=== PATIENT | female | born 1935 | race Caucasian/White ===

== ENCOUNTER 2017-09-21 11:30 | Inpatient (IN) | payer OTHER, BC ==
[2017-09-18 13:44] VITALS: BMI 26.5
[2017-09-21] MEDS ORDERED: ROCURONIUM BROMIDE 50 MG/5 ML VIAL ONE (13:50)
[2017-09-21] MEDS ORDERED: MIDAZOLAM HCL 2 MG/2 ML SINGLE DOSE VIAL ONE ×2 (13:50→14:26)
[2017-09-21] MEDS ORDERED: LIDOCAINE 1%/EPI 1:100000 (20 ML MULTI DOSE VIAL) ONE (14:25)
[2017-09-21] MEDS ORDERED: THROMBIN (BOVINE) 5,000 UNIT VIAL TP ONE (14:25)
[2017-09-21] MEDS ORDERED: GELATIN, ABSORBABLE 100 EACH SPONGE TP ONE (14:25)
--- NOTE | 2017-09-21 14:32 | HP ---
History & Physical Update - History History: No Change - Physical Physical: No Change - Assessment Assessment: No Change - Plan Plan: No Change
[2017-09-21] MEDS ORDERED: oxyCODONE HCL 5 MG TABLET PO PRN ×2 (15:26→17:56)
[2017-09-21] MEDS ORDERED: ONDANSETRON 4 MG/2 ML VIAL IVPUSH PRN ×2 (15:26→17:56)
[2017-09-21] MEDS ORDERED: LACTATED RINGERS SOLUTION 1,000 ML IV SCH (15:30)
[2017-09-21] MEDS ORDERED: LIDOCAINE 1%/EPI 1:100000 (20 ML MULTI DOSE VIAL) INF ONE (15:40)
[2017-09-21] MEDS ORDERED: ceFAZolin SODIUM 1 GM VIAL ONE (15:47)
[2017-09-21] MEDS ORDERED: DEXAMETHASONE SOD PHOSPHATE 4 MG/1 ML VIAL ONE (15:50)
[2017-09-21] MEDS ORDERED: ONDANSETRON 4 MG/2 ML VIAL ONE (17:57)
[2017-09-21] MEDS ORDERED: diazePAM 2 MG TABLET PO ONE (18:09)
--- NOTE | 2017-09-21 18:20 | OP ---
Operative Note - Note: Operative Date: 09/21/17 Pre-Operative Diagnosis: spinal stenosis Operation: anterior cervcial fusion, decompression, instrumentation of C5-C6 and C6-C7 with allograft and neuromonitoring Surgeon: Dat Edwards General Production Manager: Maggie Harvey Anesthesiologist/WHIP SAWYER: Anila Garber Anesthesia: General Estimated Blood Loss (mls): 30 Fluid Volume Replaced (mls): 1,300 Operative Report Dictated: Yes
--- NOTE | 2017-09-21 18:21 | SURG ---
Surgery Manager Learning Note Manager Learning: Maggie Harvey PA-C Date of Service: 09/21/17 Diagnosis: spinal stenosis Procedure: anterior cervicla fusion, decompression, instrumentation of C5-C6 and C6-C7 with allograft and neuromonitoring I was present for the entirety of the operative procedure. For further detail, please refer to operative report. Visit type - Case Type Case Type: Scheduled Admission - Emergency Emergency Visit: No - New patient This patient is new to me today: Yes Date on this admission: 09/21/17
[2017-09-21] MEDS ORDERED: SODIUM CHLORIDE 1,000 ML IV SCH (18:30)
[2017-09-21] MEDS ORDERED: diazePAM 2 MG TABLET ONE (19:03)
[2017-09-21] MEDS ORDERED: ACETAMINOPHEN 325 MG TABLET (FP) ONE (19:03)
[2017-09-21] MEDS ORDERED: traMADol HCL 50 MG TABLET ONE (19:04)
[2017-09-21] MEDS: diazePAM 2 MG TABLET PO PRN (19:10)
[2017-09-21] MEDS: ACETAMINOPHEN 325 MG TABLET (FP) PO SCH ×2 (19:10→21:33)
[2017-09-21] MEDS: traMADol HCL 50 MG TABLET PO SCH ×2 (19:10→21:33)
[2017-09-21] MEDS: CEFAZOLIN 1 GM/D5W 1 GM/50 ML BAG IVPB SCH (21:35)
[2017-09-21] MEDS: DEXAMETHASONE SOD PHOSPHATE 4 MG/1 ML VIAL IVPUSH SCH ×2 (21:36)
[2017-09-22] MEDS: ACETAMINOPHEN 325 MG TABLET (FP) PO SCH ×3 (00:43→11:53)
[2017-09-22] MEDS: traMADol HCL 50 MG TABLET PO SCH ×4 (00:45→14:43)
[2017-09-22] MEDS: CEFAZOLIN 1 GM/D5W 1 GM/50 ML BAG IVPB SCH (02:39)
[2017-09-22] MEDS: DEXAMETHASONE SOD PHOSPHATE 4 MG/1 ML VIAL IVPUSH SCH (02:39)
[2017-09-22] MEDS: diazePAM 2 MG TABLET PO PRN ×3 (03:30→11:58)
--- NOTE | 2017-09-22 08:36 | DS ---
Physical Exam: SUBJECTIVE: Patient seen and examined this am, she denies any CP, SOB. She tolerated soft diet. OBJECTIVE: Vital Signs Temperature 97.7 F 09/22/17 05:00 Pulse Rate 92 H 09/22/17 05:00 Respiratory Rate 19 09/22/17 05:00 Blood Pressure 154/67 09/22/17 05:00 O2 Sat by Pulse Oximetry (%) 93 L 09/22/17 05:25 PHYSICAL EXAM GENERAL: The patient is awake, alert, and fully oriented, in no acute distress. NECK: Neck supple, inc c/d/i with steri-strips. No evidence of hematoma, neck soft, SAJI removed intact. No stridor LUNGS: Breath sounds equal, clear to auscultation bilaterally. HEART: Regular rate and rhythm. ABDOMEN: Soft, nontender, nondistended, normoactive bowel sounds. EXTREMITIES: 2+ pulses, warm, well-perfused, no edema. NEUROLOGICAL: Normal speech, gait not observed. 5/5 dorsi/plantar flexion b/l. Fish Liver Sorter strength equal b/l, upper extremity flexion/extension 5/5 b/l. PSYCH: Normal mood, normal affect. LABS HOSPITAL COURSE: Date of Admission:09/21/17 Date of Discharge: 09/22/17 The patient was admitted to the Med-Surg Unit after an elective repair of their cervical stenosis. Now, s/p ACDF C5-C6 and C6-C7. The day of surgery, the patient ambulated the hallways with assistance. Narcotic and non-narcotic pain management control was achieved with an oral and IV approach. POD #1, the surgical drain was removed fully intact and without incident. An xray was obtained and confirmed hardware placement at C5-C6 and C6-C7, no fractures or dislocations. [place]-operative IV ABX were administered. DVT prophylaxis was achieved with SCDs and early ambulation. The patient ambulated with Physical Therapy and no services were recommended upon discharge. Narcotic scripts and or muscle relaxants were checked with [facility] prior to escibe. The discharge instructions and an oral pain management plan were reviewed with the patient. All questions answered. Above plan discussed with Dr. Edwards and agreed. Minutes to complete discharge: 20 <Maggie Harvey - Last Filed: 09/22/17 11:17> Physical Exam: SUBJECTIVE: Patient seen and examined OBJECTIVE: Vital Signs Temperature 97.7 F 09/22/17 05:00 Pulse Rate 92 H 09/22/17 05:00 Respiratory Rate 19 09/22/17 05:00 Blood Pressure 154/67 09/22/17 05:00 O2 Sat by Pulse Oximetry (%) 95 09/22/17 08:36 PHYSICAL EXAM GENERAL: The patient is awake, alert, and fully oriented, in no acute distress. HEAD: Normal with no signs of trauma. EYES: PERRL, extraocular movements intact, sclera anicteric, conjunctiva clear. ENT: Ears normal, nares patent, oropharynx clear without exudates, moist mucous membranes. NECK: Trachea midline, full range of motion, supple. LUNGS: Breath sounds equal, clear to auscultation bilaterally, no wheezes, no crackles, no accessory muscle use. HEART: Regular rate and rhythm, S1, S2 without murmur, rub or gallop. ABDOMEN: Soft, nontender, nondistended, normoactive bowel sounds, no guarding, no rebound, no hepatosplenomegaly, no masses. EXTREMITIES: 2+ pulses, warm, well-perfused, no edema. NEUROLOGICAL: Cranial nerves II through XII grossly intact. Normal speech, gait not observed. PSYCH: Normal mood, normal affect. SKIN: Warm, dry, normal turgor, no rashes or lesions noted. LABS HOSPITAL COURSE: Date of Admission:09/21/17 Date of Discharge: 09/22/17 The patient was admitted to the Med-Surg Unit after an elective repair of their C5-7 stenosis. The day of surgery, the patient ambulated the hallways with assistance. Narcotic and non-narcotic pain management control was achieved with an oral and IV approach. POD #1, the surgical drain was removed fully intact and without incident. An xray was obtained and confirmed hardware placement at C5-7, no fractures or dislocations. [place]-operative IV ABX were administered. DVT prophylaxis was achieved with SCDs and early ambulation. The patient ambulated with Physical Therapy and no services were recommended upon discharge. Narcotic scripts and or muscle relaxants were checked with [facility] prior to escibe. The discharge instructions and an oral pain management plan were reviewed with the patient. All questions answered. Above plan discussed with Dr. Edwards and agreed. <Dat Edwards - Last Filed: 09/22/17 11:28> Visit type - Case Type Case Type: Scheduled Admission - Emergency Emergency Visit: No - New patient This patient is new to me today: No <Maggie Harvey - Last Filed: 09/22/17 11:17>
[2017-09-22] MEDS ORDERED: LISINOPRIL 20 MG TABLET (FP) PO SCH (10:00)
[2017-09-22] MEDS ORDERED: ESCITALOPRAM OXALATE 10 MG TABLET (FP) PO SCH (10:00)
--- NOTE | 2017-09-22 11:43 | PN ---
Progress Note (short form) - Note Progress Note: 82 yo F POD#1 s/p ACDF under GA S: Sitting in chair, eating, without complaint O: No distress, vitals WNL A/P: Patient doing well, continue current care. No anesthetic complications
[2017-09-22 14:07] VITALS: BP 137/69; PULSE 90; TEMP 97.8
--- NOTE | 2017-09-25 15:23 | PATH ---
Surgical Pathology Report Patient Name: BANDAR GRANDE Med. Rec. #: [id number] /Age/Gender: 1935 (Age: 82) / F Account: [id number] Location: [facility] MED-SURG Taken: 09/21/2017 Received: 09/21/2017 Reported: 09/25/2017 Physicians: Dat Edwards M.D. Specimen(s) Received DISC C5-6, C6-7 Clinical History Cervical stenosis Final Diagnosis INTERVERTEBRAL DISC, C5-6 AND C6-7, PARTIAL EXCISION: PORTIONS OF BENIGN BONE AND ARTICULAR CARTILAGE. Electronically Signed Isreal Morgan M.D. Gross Description Received in formalin labeled "disc C5-6, C6-7," are 2 fragments of fibrocartilaginous tissue and possible bone measuring 1.0 x 0.5 x 0.2 cm in aggregate. The specimens are submitted in toto in one cassette, following decalcification. 09/22/201709/22/2017
== END 2017-09-22 17:55 | disposition home or self-care (01) | DRG 473 ==
LOC: FM/S 12:24 → EDSTATUS 14:00 → FM/S 19:26
PROVIDERS: ADMIT Orthopaedic Surgery Orthopaedic Surgery of the Spine; ATTEND Orthopaedic Surgery Orthopaedic Surgery of the Spine
PROC: 0RG20K0 Fusion of 2 or more Cervical Vertebral Joints with Nonautologous Tissue Substitute, Anterior Approach, Anterior Column, Open Approach (ICD-10-PCS; 2017-09-21)
PROC: 0RG20A0 Fusion of 2 or more Cervical Vertebral Joints with Interbody Fusion Device, Anterior Approach, Anterior Column, Open Approach (ICD-10-PCS; 2017-09-21)
PROC: 0RB30ZZ Excision of Cervical Vertebral Disc, Open Approach (ICD-10-PCS; principal; 2017-09-21 15:59)
DX: M48.02 Spinal stenosis, cervical region (principal)
CPT/HCPCS: 72050-TC; 94760; 97116-GP; 97162-GP

== ENCOUNTER 2019-07-17 08:35 | Day surgery (SDC) | payer OTHER, BC ==
[2019-07-15 10:49] VITALS: BMI 25.7
[2019-07-17] MEDS: PHENYLEPHRINE 2.5% OPHTH SOLN 15 ML BOTTLE ONE ×3 (09:15→09:25)
[2019-07-17] MEDS: TROPICAMIDE 1% OPHTH SOLN 15 ML BOTTLE ONE ×3 (09:15→09:25)
[2019-07-17] MEDS: CIPROFLOXACIN 0.3% EYE DROPS 5 ML BOTTLE ONE ×3 (09:15→09:25)
[2019-07-17] MEDS: CYCLOPENTOLATE 2% OPHTH SOLN 2 ML BOTTLE ONE ×3 (09:15→09:25)
[2019-07-17] MEDS ORDERED: MIDAZOLAM HCL 2 MG/2 ML SINGLE DOSE VIAL ONE ×2 (10:25→10:58)
[2019-07-17] MEDS ORDERED: BSS (NA/CA/MG/K) BALANCED SALT SOLUTION OPHTH SOLN 15 ML BOTTLE ONE (10:38)
[2019-07-17] MEDS ORDERED: CARBACHOL 0.01% INTRA-OCULAR 1.5 ML VIAL ONE (10:39)
[2019-07-17] MEDS ORDERED: NEO/POLYMYX B SULF/DEXAMETH OPHTHALMIC 5ML BOTTLE ONE (10:39)
[2019-07-17 11:32] VITALS: TEMP 98.3
[2019-07-17 11:54] VITALS: BP 144/71; PULSE 77
--- NOTE | 2019-07-17 17:00 | OP ---
DATE OF OPERATION: 07/17/2019 OPERATIVE PROCEDURE: Lens phacoemulsification with posterior chamber intraocular lens placement right eye. PREOPERATIVE DIAGNOSIS: Visually significant cataract of right eye. POSTOPERATIVE DIAGNOSIS: Visually significant cataract of right eye. SURGEON: Peterson Milner M.D. ANESTHESIA: MAC PROCEDURE: The patient was brought to the operating room and placed under monitored anesthesia care by Anesthesia. A drop of tetracaine was then placed over the right eye. The patient was then prepped and draped in the usual sterile manner. A speculum was then placed over the right eye. The eye was then well irrigated with copious amounts of BSS (balanced salt solution). The operating microscope was then moved into position. A paracentesis was performed using a 15 degree blade. At this point 0.5 mL of 1% preservative-free lidocaine was injected into the anterior chamber. Amvisc Plus was then injected into the anterior chamber. A clear corneal incision was then formed using a 2.2 mm keratome. A capsulorrhexis was then performed in a continuous circular fashion beginning with a cystotome and completed with Utrata forceps. Hydrodissection was then performed using BSS on a cannula. The phaco probe was then introduced through the corneal wound and the cataract was removed using the phaco chop technique. Approximately 3 seconds of absolute phaco time was used. The remaining cortex was then removed using irrigation and aspiration with an I/A probe. The capsule was then filled with regular Amvisc and the capsule was noted to be intact. A previously selected foldable posterior chamber intraocular lens was then injected into the capsule through the corneal wound using a lens injector. It was then dialed into position using a Sinskey hook. The Amvisc was then removed using irrigation and aspiration. Miostat was then injected through the paracentesis to constrict the pupil. The paracentesis and corneal wound were then hydrated and noted to be watertight. A drop of Maxitrol was then placed over the eye. The speculum was removed and clear shield was taped over the eye. The patient tolerated the procedure well and there were no surgical complications. The patient was asked to follow up in my office the next day. PETERSON MILNER M.D. [id number]
== END 2019-07-17 12:10 | disposition home or self-care (01) ==
LOC: FASU 08:35
PROVIDERS: ATTEND Ophthalmology
PROC: 08RJ3JZ Replacement of Right Lens with Synthetic Substitute, Percutaneous Approach (ICD-10-PCS; principal; 2019-07-17 10:59)
DX: H26.8 Other specified cataract (principal)

== ENCOUNTER 2019-08-12 09:51 | Day surgery (SDC) | payer OTHER, BC ==
[2019-08-09 09:26] VITALS: BMI 25.7
[2019-08-12] MEDS ORDERED: MIDAZOLAM HCL 2 MG/2 ML SINGLE DOSE VIAL ONE (10:22)
[2019-08-12] MEDS: CYCLOPENTOLATE 2% OPHTH SOLN 2 ML BOTTLE ONE ×3 (10:40→10:50)
[2019-08-12] MEDS: PHENYLEPHRINE 2.5% OPHTH SOLN 15 ML BOTTLE ONE ×3 (10:40→10:50)
[2019-08-12] MEDS: TROPICAMIDE 1% OPHTH SOLN 15 ML BOTTLE ONE ×3 (10:40→10:50)
[2019-08-12] MEDS: CIPROFLOXACIN 0.3% EYE DROPS 5 ML BOTTLE ONE ×3 (10:40→10:50)
[2019-08-12] MEDS ORDERED: BSS (NA/CA/MG/K) BALANCED SALT SOLUTION OPHTH SOLN 15 ML BOTTLE ONE (11:05)
[2019-08-12] MEDS ORDERED: CARBACHOL 0.01% INTRA-OCULAR 1.5 ML VIAL ONE (11:06)
[2019-08-12] MEDS ORDERED: NEO/POLYMYX B SULF/DEXAMETH OPHTHALMIC 5ML BOTTLE ONE (11:06)
[2019-08-12 12:19] VITALS: BP 129/60
[2019-08-12 12:39] VITALS: PULSE 80; TEMP 98.1
--- NOTE | 2019-08-12 17:07 | OP ---
DATE OF OPERATION: 08/12/2019 OPERATIVE PROCEDURE: Lens Phacoemulsification with Posterior Chamber Intraocular Lens Placement Left Eye. PREOPERATIVE DIAGNOSIS: Visually Significant Cataract of Left Eye. POSTOPERATIVE DIAGNOSIS: Visually Significant Cataract of Left Eye. SURGEON: Peterson Milner MD ANESTHESIA: MAC ANESTHESIOLOGIST: PROCEDURE: The patient was brought to the operating room and placed under monitored anesthesia care by Anesthesia. A drop of Tetracaine was then placed over the left eye. The patient was then prepped and draped in the usual sterile manner. A speculum was then placed over the left eye. The eye was then well irrigated with copious amounts of BSS (balanced salt solution). The operating microscope was then moved into position. A paracentesis was performed using a 15 degree blade. At this point 0.5 mL of 1% preservative-free lidocaine was injected into the anterior chamber. Amvisc plus was then injected into the anterior chamber. A clear corneal incision was then formed using a 2.2 mm keratome. A capsulorrhexis was then performed in a continuous circular fashion beginning with a cystotome, completed with an Utratas forceps. Hydrodissection was then performed using BSS on a cannula. The phaco probe was then introduced through the corneal wound and the cataract was removed using the phaco chop technique. Approximately 3 seconds of absolute phaco time was used. The remaining cortex was then removed using irrigation and aspiration with an I/A probe. The capsule was then filled with regular Amvisc and the capsule was noted to be intact. A previously selected foldable posterior chamber intraocular lens was then injected into the capsule through the corneal wound using a lens injector. It was then dialed into position using a Sinskey hook. The Amvisc was then removed using irrigation and aspiration. Miostat was then injected through the paracentesis to constrict the pupil. The paracentesis and corneal wound were then hydrated and noted to be watertight. A drop of Maxitrol was then placed over the eye. The speculum was removed, and clear shield was taped over the eye. The patient tolerated the procedure well and there were no surgical complications. The patient was asked to follow up in my office the next day. PETERSON MILNER M.D. [id number]
[2019-08-12] MEDS ORDERED: ACETAMINOPHEN 325 MG TABLET (FP) PO PRN (17:09)
[2019-08-12] MEDS ORDERED: LACTATED RINGERS SOLUTION 1,000 ML IV SCH (17:15)
== END 2019-08-12 12:35 | disposition home or self-care (01) ==
LOC: FASU 09:51
PROVIDERS: ATTEND Ophthalmology
PROC: 08RK3JZ Replacement of Left Lens with Synthetic Substitute, Percutaneous Approach (ICD-10-PCS; principal; 2019-08-12 11:36)
DX: H26.8 Other specified cataract (principal)